=== PATIENT | male | born 1975 | race Hispanic/Latino ===

== ENCOUNTER 2021-07-02 13:11 | Emergency (ER) | payer OTHER ==
[~2021-07-02] VITALS: Ht 167.6 cm; Wt 102.1 kg
[2021-07-02] MEDS ORDERED: AZIT1PAC7 PO (14:48)
[2021-07-02] MEDS ORDERED: D-ME118S47 PO (14:48)
[2021-07-02] MEDS ORDERED: PRED20TA3 PO (14:48)
[2021-07-02] MEDS ORDERED: AZITHROMYCIN 250 MG TABLET PO ONE (15:00)
[2021-07-02] MEDS ORDERED: GUAIFENESIN-DM 200/20 MG 10 ML PO ONE (15:00)
[2021-07-02] MEDS ORDERED: DEXAMETHASONE SOD PHOSPHATE 4 MG/ML 1ML VIAL IM ONE (15:00)
[2021-07-02 15:17] VITALS: BP 132/86
== END 2021-07-02 15:20 | disposition home or self-care (01) ==
LOC: EDH 13:11
DX: J45.901 Unspecified asthma with (acute) exacerbation (principal); Z79.52 Long term (current) use of systemic steroids
CPT/HCPCS: 71046; 93005; 96372; 99283; J1100